=== PATIENT | male | born 2000 | race African-American/Black ===

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

== ENCOUNTER 2022-02-06 11:56 | Emergency (ER) | payer OTHER, SELFPAY ==
[2022-02-06 12:18] LABS: Bilirubin Negative (Negative); Blood, Urine Trace (Negative); Clarity Cloudy (Clear); Glucose, Urine (Dipstick) Negative (Negative); Ketone, Urine Negative (Negative); Leukocyte Moderate (Negative); Nitrite Negative (Negative); Protein, Urine (Dipstick) Negative (Neg-Trace); Specific Gravity, Urine 1.025 (1.005-1.030); Urobilinogen 0.2 mg/dL (Less than 2); pH, Urine 8.5 (5.0-9.0)
[2022-02-06] MEDS ORDERED: Azithromycin 250 MG TAB ONE (12:27)
[2022-02-06] MEDS ORDERED: Lidocaine 1% 20 ML MDV ONE (12:27)
[2022-02-06] MEDS ORDERED: cefTRIAXone\\ROCEPHIN 500 MG VIAL ONE (12:27)
[2022-02-06 12:28] LABS: Bacteria/HPF Rare-Few HPF (None Seen)
[2022-02-07 11:35] LABS: Chlam.trachomatis by PCR,Urine DETECTED (NotDetected)
== END 2022-02-06 12:48 | disposition home or self-care (01) ==
LOC: NAV ERS 11:56
DX: N34.2 Other urethritis (principal); F17.210 Nicotine dependence, cigarettes, uncomplicated
CPT/HCPCS: 81003; 81015; 87491; 87591; 96372; 99284; J0696